=== PATIENT | female | born 1990 | race American Indian/Alaskan Native ===

== ENCOUNTER 2017-12-12 00:44 | Emergency (ER) | payer MEDICAID ==
[2017-12-12] MEDS ORDERED: ZOFRAN ODT ONE (02:55)
[2017-12-12] MEDS ORDERED: ZOFRAN ODT PO ONE (03:05)
[2017-12-12 03:50] LABS: Hemoglobin 12.9 gm/dl (10.1-14.3); Mean Corpuscular HGB Conc 33 % (30-34); Mean Corpuscular Hemoglobin 26 pg (28-32); Mean Corpuscular Volume 77 fl (79-97); Mean Platelet Volume 8.5 fl (6-12); Platelet Count 247 K/mm3 (140-440); Red Blood Count 5.05 M/mm3 (3.65-5.03); Red Cell Distribution Width 15.7 % (13.2-15.2)
[2017-12-12 04:22] LABS: Bacteria,Urine 1+ /HPF (Negative); Bilirubin,Urine NEG (Negative); Blood,Urine SM (Negative); Color,Urine Yellow (Yellow); Mucus,Urine 1+ /HPF; Urobilinogen,Urine < 2.0 mg/dL (<2.0)
[2017-12-12 04:25] LABS: Band Neutrophils # (Manual) 0.2 K/mm3; Basophils % (Manual) 0 % (0.0-1.8); Eosinophils % (Manual) 0 % (0.0-4.3); Hypochromasia 1+; Platelet Estimate Consistent w Auto; Total Cells Counted 100
[2017-12-12] MEDS ORDERED: TYLENOL ONE (04:48)
[2017-12-12] MEDS ORDERED: TYLENOL PO ONE (04:55)
[2017-12-12 07:45] LABS: Blood Urea Nitrogen 10 mg/dL (7-17)
[2017-12-12 07:46] LABS: Alanine Aminotransferase 5 units/L (7-56); BUN/Creatinine Ratio 17; Calcium 9.2 mg/dL (8.4-10.2); Hemolysis Index 7
[2017-12-12] MEDS ORDERED: NACL 0.9% 1000 ML 1,000 ML IV ONE (08:40)
--- NOTE | 2017-12-12 09:24 | Emergency Department Report ---
ED Abdominal Pain HPI - General Chief Complaint: Abdominal Pain Stated Complaint: ABD PAIN Time Seen by Provider: 12/12/17 08:41 Source: patient Mode of arrival: Ambulatory Limitations: No Limitations - History of Present Illness Initial Comments: This is a 27-year-old female nontoxic, well nourished in appearance, no acute signs of distress presents to the ED with c/o of upper abdominal pain with nausea, vomiting and diarrhea x1 day. Patient stated she went to eat wings sunday night and developed these symptoms. Patient denies any abdominal pain. Patient describes vomit as food content with yellow gastric acid. Patient denies any chest pain, shortness of breath, fever, chills, back pain, urinary symptoms, numbness, tingling. Patient denies any recent travels, localized. Patient denies any drug allergies or significant past medical history. MD Complaint: abdominal pain -: days(s) (1) Location: LUQ, RUQ Radiation: none Migration to: no migration Severity: mild Severity scale (0 -10): 8 Quality: cramping, aching Consistency: constant Improves With: nothing Worsens With: nothing Associated Symptoms: nausea, vomiting, diarrhea. denies: fever, chills, constipation, dysuria, hematemesis, hematochezia, melena, hematuria, anorexia, syncope - Related Data Previous Rx's Medication Instructions Recorded Last Taken Type Ondansetron [Zofran Odt] 4 mg PO Q4H #20 tab.rapdis 12/23/13 Unknown Rx Pnv 21/Iron Ps,Heme Ppep/Folic 1 each PO QDAY #30 tablet 12/23/13 Unknown Rx [Prefera Ob Tablet] Ibuprofen [Motrin] 800 mg PO Q8HR PRN #30 tablet 03/18/16 Unknown Rx Promethazine [Phenergan TAB] 25 mg PO Q6HR PRN #20 tab 03/18/16 Unknown Rx traMADol [Ultram 50 MG tab] 50 mg PO Q6HR PRN #20 tablet 03/18/16 Unknown Rx Ibuprofen [Motrin] 600 mg PO Q8H PRN #30 tablet 12/12/17 Unknown Rx Ondansetron [Zofran Odt] 4 mg PO Q8HR PRN #20 tab.rapdis 12/12/17 Unknown Rx Allergies Allergy/AdvReac Type Severity Reaction Status Date / Time latex Allergy breaks out Verified 12/23/13 10:45 ED Review of Systems ROS: Stated complaint: ABD PAIN Other details as noted in HPI Constitutional: denies: chills, fever Eyes: denies: eye pain, eye discharge, vision change ENT: denies: ear pain, throat pain Respiratory: denies: cough, shortness of breath, wheezing Cardiovascular: denies: chest pain, palpitations Endocrine: no symptoms reported Gastrointestinal: abdominal pain, nausea, vomiting, diarrhea. denies: constipation Genitourinary: denies: urgency, dysuria, discharge Musculoskeletal: denies: back pain, joint swelling, arthralgia Skin: denies: rash, lesions Neurological: denies: headache, weakness, paresthesias Psychiatric: denies: anxiety, depression Hematological/Lymphatic: denies: easy bleeding, easy bruising ED Past Medical Hx - Past Medical History Previous Medical History?: Yes Hx Hypertension: No Hx Congestive Heart Failure: No Hx Diabetes: No Hx Deep Vein Thrombosis: No Hx Renal Disease: No Hx Sickle Cell Disease: No Hx Seizures: No Hx Asthma: No Hx COPD: No Hx HIV: No Additional medical history: chronic back pain/nerve pain - Surgical History Past Surgical History?: No - Social History Smoking Status: Never Smoker Substance Use Type: None - Medications Home Medications: Home Medications Medication Instructions Recorded Confirmed Last Taken Type Ondansetron [Zofran Odt] 4 mg PO Q4H #20 tab.rapdis 12/23/13 Unknown Rx Pnv 21/Iron Ps,Heme Ppep/Folic 1 each PO QDAY #30 tablet 12/23/13 Unknown Rx [Prefera Ob Tablet] Ibuprofen [Motrin] 800 mg PO Q8HR PRN #30 tablet 03/18/16 Unknown Rx Promethazine [Phenergan TAB] 25 mg PO Q6HR PRN #20 tab 03/18/16 Unknown Rx traMADol [Ultram 50 MG tab] 50 mg PO Q6HR PRN #20 tablet 03/18/16 Unknown Rx Ibuprofen [Motrin] 600 mg PO Q8H PRN #30 tablet 12/12/17 Unknown Rx Ondansetron [Zofran Odt] 4 mg PO Q8HR PRN #20 tab.rapdis 12/12/17 Unknown Rx ED Physical Exam - General Limitations: No Limitations General appearance: alert, in no apparent distress - Head Head exam: Present: atraumatic, normocephalic - Eye Eye exam: Present: normal appearance Pupils: Present: normal accommodation - ENT ENT exam: Present: normal exam, mucous membranes moist - Neck Neck exam: Present: normal inspection, full ROM. Absent: tenderness, meningismus, lymphadenopathy - Respiratory Respiratory exam: Present: normal lung sounds bilaterally. Absent: respiratory distress, wheezes, rales, rhonchi, stridor, chest wall tenderness, accessory muscle use, decreased breath sounds, prolonged expiratory - Cardiovascular Cardiovascular Exam: Present: regular rate, normal rhythm, normal heart sounds. Absent: bradycardia, tachycardia, irregular rhythm, systolic murmur, diastolic murmur, rubs, gallop - GI/Abdominal GI/Abdominal exam: Present: soft, tenderness (RUQ and LUQ), normal bowel sounds. Absent: distended, guarding, rebound, rigid, diminished bowel sounds - Expanded GI/Abdominal Exam Expanded GI/Abdominal exam: Absent: psoas sign, obturator sign, heel tap sign, Bee's sign, Rovsing's sign, tenderness at Mcburney's Point, ascites - Rectal Rectal exam: Present: deferred - Extremities Exam Extremities exam: Present: normal inspection, full ROM, normal capillary refill - Back Exam Back exam: Present: normal inspection, full ROM. Absent: tenderness, CVA tenderness (R), CVA tenderness (L), paraspinal tenderness, vertebral tenderness - Neurological Exam Neurological exam: Present: alert, oriented X3, normal gait - Psychiatric Psychiatric exam: Present: normal affect, normal mood - Skin Skin exam: Present: warm, dry, intact, normal color. Absent: rash ED Course Vital Signs 12/12/17 12/12/17 02:43 04:58 Temperature 98.4 F Pulse Rate 63 Respiratory 12 18 Rate Blood Pressure 124/75 O2 Sat by Pulse 100 Oximetry - Reevaluation(s) Reevaluation #1: 12/12/17 09:54 Patient is speaking in full sentences with no signs of distress noted. ED Medical Decision Making - Lab Data Result diagrams: 12/12/17 03:01 12/12/17 03:01 - Medical Decision Making This is a 27-year-old female that presents with abdominal pain and nausea vomiting. Patient stable was examined by me. There is slight abdominal tenderness. No rebound tenderness. Labs obtained. CT abdomen/pelvis with contrast obtained and dictated by the radiologist. Patient received 1L of normal saline and zofran which patient stated symptoms has resolved and subsided. A by mouth challenge of apple juice had been obtained and patient tolerated well with no nausea vomiting. Patient discharged with Zofran. Patient was instructed to increase hydration. Patient was referred to Follow- up with a primary care doctor in 3-5 days or if symptoms worsen and continue return to emergency room as soon as possible. At time of discharge, the patient does not seem toxic or ill in appearance. No acute signs of distress noted. Patient agrees to discharge treatment plan of care. No further questions noted by the patient. Critical care attestation.: If time is entered above; I have spent that time in minutes in the direct care of this critically ill patient, excluding procedure time. ED Disposition Clinical Impression: Nausea & vomiting Qualifiers: Vomiting type: unspecified Vomiting Intractability: non-intractable Qualified Code(s): R11.2 - Nausea with vomiting, unspecified Abdominal pain Qualifiers: Abdominal location: upper abdomen, unspecified Qualified Code(s): R10.10 - Upper abdominal pain, unspecified Disposition: DC-01 TO HOME OR SELFCARE Is pt being admited?: No Does the pt Need Aspirin: No Condition: Stable Instructions: Abdominal Pain (ED), Acute Nausea and Vomiting (ED), Ondansetron (By mouth) Additional Instructions: Follow-up with a primary care doctor in 3-5 days or if symptoms worsen and continue return to emergency room as soon as possible. Prescriptions: Ibuprofen [Motrin] 600 mg PO Q8H PRN #30 tablet PRN Reason: Pain Ondansetron [Zofran Odt] 4 mg PO Q8HR PRN #20 tab.rapdis PRN Reason: Nausea Referrals: PRIMARY CARE, [Primary Care Provider] - 3-5 Days MARIANNA LOPEZ MD [Staff Physician] - 3-5 Days [facility] [Outside] - 3-5 Days [facility] [Outside] - 3-5 Days Forms: Work/School Release Form(ED)
--- NOTE | 2017-12-12 10:51 | Cat Scan Report ---
CT scan of the abdomen and pelvis with IV contrast: History: Abdominal pain. Findings: Normal lung bases. No pleural or pericardial effusion. Normal liver spleen pancreas gallbladder. Normal adrenals, kidneys and bladder. Minimal fluid in the cul-de-sac. No free intraperitoneal air. No evidence of adenopathy. Normal aorta with normal origin of superior mesenteric artery and celiac artery. Diameter of the appendix 5 mm. No periappendiceal inflammation. No evidence of diverticulitis. Suspected right ovarian cyst. Gaseous colon with minimal stool in colon. No bowel distention. Impression: Free intraperitoneal fluid in the cul-de-sac may be related to rupture of ovarian cyst. Suspected right ovarian cyst. Sonographic examination may be advised.
[2017-12-12 11:17] VITALS: BP 122/75
== END 2017-12-12 11:17 | disposition home or self-care (01) ==
LOC: ED 00:44
DX: R11.2 Nausea with vomiting, unspecified (principal); R10.10 Upper abdominal pain, unspecified; Z91.040 Latex allergy status; M54.9 Dorsalgia, unspecified; G89.29 Other chronic pain
CPT/HCPCS: 36415; 74177; 80053; 81001; 84703; 85007; 85025; 96360; 99284; J7030; Q9967; Q0162

== ENCOUNTER 2019-02-06 06:53 | Emergency (ER) | payer MEDICAID, OTHER ==
[2019-02-06 07:07] VITALS: BP 131/71
[2019-02-06 07:51] LABS: Bacteria,Urine 1+ /HPF (Negative); Bilirubin,Urine NEG (Negative); Blood,Urine NEG (Negative); Color,Urine Yellow (Yellow); Mucus,Urine FEW /HPF; Protein,Urine <15 mg/dL mg/dL (Negative); Urobilinogen,Urine < 2.0 mg/dL (<2.0)
[2019-02-06 07:53] LABS: HCG Qualitative,Urine Negative (Negative)
--- NOTE | 2019-02-06 08:38 | Emergency Department Report ---
ED Female HPI - General Chief complaint: Abdominal Pain Stated complaint: LOWER BACK & LOWER ABDOMINAL PAIN Time Seen by Provider: 02/06/19 08:06 Source: patient Mode of arrival: Ambulatory Limitations: No Limitations - History of Present Illness Initial comments: This is a 28-year-old female presents to ED complaining of lower pelvic pain that began last night after she had sexual intercourse with her partner. Patient states she does have some pain with urination but denies vaginal discharge, bleeding, lesions. She also denies fever, chills, nausea or vomiting MD Complaint: pelvic pain, possible STD Location: suprapubic - Related Data Previous Rx's Medication Instructions Recorded Last Taken Type Ondansetron [Zofran Odt] 4 mg PO Q4H #20 tab.rapdis 12/23/13 Unknown Rx Pnv 21/Iron Ps,Heme Ppep/Folic 1 each PO QDAY #30 tablet 12/23/13 Unknown Rx [Prefera Ob Tablet] Ibuprofen [Motrin] 800 mg PO Q8HR PRN #30 tablet 03/18/16 Unknown Rx Promethazine [Phenergan TAB] 25 mg PO Q6HR PRN #20 tab 03/18/16 Unknown Rx traMADol [Ultram 50 MG tab] 50 mg PO Q6HR PRN #20 tablet 03/18/16 Unknown Rx Ibuprofen [Motrin] 600 mg PO Q8H PRN #30 tablet 12/12/17 Unknown Rx Ondansetron [Zofran Odt] 4 mg PO Q8HR PRN #20 tab.rapdis 12/12/17 Unknown Rx Fluconazole [Diflucan TAB] 150 mg PO ONCE #1 tablet 02/06/19 Unknown Rx Allergies Allergy/AdvReac Type Severity Reaction Status Date / Time latex Allergy breaks out Verified 02/06/19 07:04 ED Review of Systems ROS: Stated complaint: LOWER BACK & LOWER ABDOMINAL PAIN Other details as noted in HPI Comment: All other systems reviewed and negative ED Past Medical Hx - Past Medical History Previous Medical History?: No Hx Hypertension: No Hx Congestive Heart Failure: No Hx Diabetes: No Hx Deep Vein Thrombosis: No Hx Renal Disease: No Hx Sickle Cell Disease: No Hx Seizures: No Hx Asthma: No Hx COPD: No Hx HIV: No Additional medical history: chronic back pain/nerve pain - Surgical History Additional Surgical History: C/S - Social History Smoking Status: Never Smoker - Medications Home Medications: Home Medications Medication Instructions Recorded Confirmed Last Taken Type Ondansetron [Zofran Odt] 4 mg PO Q4H #20 tab.rapdis 12/23/13 Unknown Rx Pnv 21/Iron Ps,Heme Ppep/Folic 1 each PO QDAY #30 tablet 12/23/13 Unknown Rx [Prefera Ob Tablet] Ibuprofen [Motrin] 800 mg PO Q8HR PRN #30 tablet 03/18/16 Unknown Rx Promethazine [Phenergan TAB] 25 mg PO Q6HR PRN #20 tab 03/18/16 Unknown Rx traMADol [Ultram 50 MG tab] 50 mg PO Q6HR PRN #20 tablet 03/18/16 Unknown Rx Ibuprofen [Motrin] 600 mg PO Q8H PRN #30 tablet 12/12/17 Unknown Rx Ondansetron [Zofran Odt] 4 mg PO Q8HR PRN #20 tab.rapdis 12/12/17 Unknown Rx Fluconazole [Diflucan TAB] 150 mg PO ONCE #1 tablet 02/06/19 Unknown Rx ED Physical Exam - General Limitations: No Limitations General appearance: alert, in no apparent distress - Head Head exam: Present: atraumatic, normocephalic - Eye Eye exam: Present: normal appearance - ENT ENT exam: Present: mucous membranes moist - Neck Neck exam: Present: normal inspection - Respiratory Respiratory exam: Present: normal lung sounds bilaterally. Absent: respiratory distress - Cardiovascular Cardiovascular Exam: Present: regular rate, normal rhythm. Absent: systolic murmur, diastolic murmur, rubs, gallop - GI/Abdominal GI/Abdominal exam: Present: soft, tenderness (suprapubic), normal bowel sounds - External exam: Present: normal external exam Speculum exam: Present: cervical discharge. Absent: vaginal bleeding, foreign body Bi-manual exam: Present: cervical motion tendernes, uterine tenderness. Absent: adnexal tenderness - Extremities Exam Extremities exam: Present: normal inspection - Back Exam Back exam: Present: normal inspection - Neurological Exam Neurological exam: Present: alert, oriented X3 - Psychiatric Psychiatric exam: Present: normal affect, normal mood - Skin Skin exam: Present: warm, dry, intact, normal color. Absent: rash ED Course Vital Signs 02/06/19 07:04 Temperature 99.1 F Pulse Rate 70 Respiratory 18 Rate Blood Pressure 131/71 O2 Sat by Pulse 100 Oximetry ED Medical Decision Making - Medical Decision Making 28-year-old female presents with cervicitis/PID Urinalysis positive for WBC was 6/and 1+ bacteria. Wet prep Pelvic exam positive for cervical motion tenderness. Discussed the patient and this is most likely due to untreated STD. Discussed treatment in the ED today. urinalysis, gonorrhea and Chlamydia cultures obtained. Patient received 250 mg of Rocephin, azithromycin 1 g, Flagyl 2 g. Discussed with patient possible STD due to exposure. Discussed with patient findings and treatment Discussed prophylaxis treatment patient is to abstain from sex 7-10 days as treatment. Discussed patient partner knowledge and treatment. Discussed the follow-up with the health department for further STD testing. Patient's alert and oriented times 3. Vital signs are normal patient is in no acute discharge. Patient will be discharged home with instructions. Critical care attestation.: If time is entered above; I have spent that time in minutes in the direct care of this critically ill patient, excluding procedure time. ED Disposition Clinical Impression: Cervicitis, STD exposure, Haley infection Disposition: DC-01 TO HOME OR SELFCARE Is pt being admited?: No Does the pt Need Aspirin: No Condition: Stable Instructions: Cervicitis (ED), Abdominal Pain (ED), Vulvovaginal Candidiasis (ED) Additional Instructions: Make sure to follow up with the primary care physician as discussed. Take all your medications as you've been prescribed. If you have any worsening symptoms or develop new symptoms please return to ED immediately. Prescriptions: Fluconazole [Diflucan TAB] 150 mg PO ONCE #1 tablet Referrals: ADY DAI MD [Primary Care Provider] - 3-5 Days Forms: STI Treatment and Prevention Time of Disposition: 10:07
[2019-02-06] MEDS ORDERED: FLAGYL PO ONE (09:32)
[2019-02-06] MEDS ORDERED: ROCEPHIN IM ONE (09:32)
[2019-02-06] MEDS ORDERED: ZITHROMAX PO ONE (09:32)
[2019-02-06] MEDS ORDERED: XYLOCAINE 1% MPF 5 mL INFILTRATI ONE (09:32)
== END 2019-02-06 10:22 | disposition home or self-care (01) ==
LOC: ED 06:53
DX: N72 Inflammatory disease of cervix uteri (principal); B37.3 Candidiasis of vulva and vagina; Z20.2 Contact with and (suspected) exposure to infections with a predominantly sexual mode of transmission; Z91.040 Latex allergy status; Z79.899 Other long term (current) drug therapy
CPT/HCPCS: 81001; 81025; 87086; 87210; 87591; 96372; 99284; J0696

== ENCOUNTER 2019-04-26 09:50 | Emergency (ER) | payer OTHER ==
[2019-04-26 11:00] LABS: Basophils % (Auto) 0.2 % (0.0-1.8); Eosinophils % (Auto) 0.7 % (0.0-4.3); Hematocrit 36.4 % (30.3-42.9); Hemoglobin 11.4 gm/dl (10.1-14.3); Lymphocytes # (Auto) 1.5 K/mm3 (1.2-5.4); Lymphocytes % (Auto) 40.4 % (13.4-35.0); Mean Corpuscular HGB Conc 31 % (30-34); Mean Corpuscular Volume 83 fl (79-97); Monocytes # (Auto) 0.3 K/mm3 (0.0-0.8); Monocytes % (Auto) 7.9 % (0.0-7.3); Platelet Count 203 K/mm3 (140-440); Red Blood Count 4.38 M/mm3 (3.65-5.03); Red Cell Distribution Width 14.3 % (13.2-15.2)
--- NOTE | 2019-04-26 11:13 | Emergency Department Report ---
- General Chief complaint: Weakness Stated complaint: GENERAL ILLNESS Time Seen by Provider: 04/26/19 10:59 Source: patient Mode of arrival: Ambulatory Limitations: No Limitations - History of Present Illness Initial comments: 29-year-old female presents to ED with 5 day history of generalized weakness, nausea, headache, nipple soreness. Patient concerned that she may be , states she did not take a test at home. Patient reports urinary frequency, however denies any dysuria, fever, hematuria, vaginal discharge or bleeding. Patient reports history of anemia, however has never required a transfusion. Reports that she is noncompliant with her iron pills. MD Complaint: lack of energy -: days(s) (5) Location: generalized Severity: moderate Severity scale (0 -10): 7 Improves with: none Worsens with: none Associated Symptoms: headaches, nausea/vomiting. denies: chest pain, dysuria, fever/chills, shortness of breath - Related Data Previous Rx's Medication Instructions Recorded Last Taken Type Ondansetron [Zofran Odt] 4 mg PO Q4H #20 tab.rapdis 12/23/13 Unknown Rx Pnv 21/Iron Ps,Heme Ppep/Folic 1 each PO QDAY #30 tablet 12/23/13 Unknown Rx [Prefera Ob Tablet] Ibuprofen [Motrin] 800 mg PO Q8HR PRN #30 tablet 03/18/16 Unknown Rx Promethazine [Phenergan TAB] 25 mg PO Q6HR PRN #20 tab 03/18/16 Unknown Rx traMADol [Ultram 50 MG tab] 50 mg PO Q6HR PRN #20 tablet 03/18/16 Unknown Rx Ibuprofen [Motrin] 600 mg PO Q8H PRN #30 tablet 12/12/17 Unknown Rx Ondansetron [Zofran Odt] 4 mg PO Q8HR PRN #20 tab.rapdis 12/12/17 Unknown Rx Fluconazole [Diflucan TAB] 150 mg PO ONCE #1 tablet 02/06/19 Unknown Rx Allergies Allergy/AdvReac Type Severity Reaction Status Date / Time latex Allergy breaks out Verified 04/26/19 09:51 nitrofurantoin Allergy Hives Verified 04/26/19 09:51 [From Macrobid] ED Review of Systems ROS: Stated complaint: GENERAL ILLNESS Other details as noted in HPI Comment: All other systems reviewed and negative Constitutional: denies: chills, fever ENT: denies: throat pain, congestion Respiratory: denies: cough, shortness of breath Cardiovascular: denies: chest pain Gastrointestinal: nausea. denies: abdominal pain, vomiting Genitourinary: frequency. denies: dysuria, hematuria, discharge, abnormal mens es Musculoskeletal: myalgia Neurological: headache ED Past Medical Hx - Past Medical History Previous Medical History?: Yes Hx Hypertension: No Hx Congestive Heart Failure: No Hx Diabetes: No Hx Deep Vein Thrombosis: No Hx Renal Disease: No Hx Sickle Cell Disease: No Hx Seizures: No Hx Asthma: No Hx COPD: No Hx HIV: No Additional medical history: chronic back pain/nerve pain, anemia - Surgical History Past Surgical History?: Yes Additional Surgical History: - Social History Smoking Status: Never Smoker Substance Use Type: Alcohol - Medications Home Medications: Home Medications Medication Instructions Recorded Confirmed Last Taken Type Ondansetron [Zofran Odt] 4 mg PO Q4H #20 tab.rapdis 12/23/13 Unknown Rx Pnv 21/Iron Ps,Heme Ppep/Folic 1 each PO QDAY #30 tablet 12/23/13 Unknown Rx [Prefera Ob Tablet] Ibuprofen [Motrin] 800 mg PO Q8HR PRN #30 tablet 03/18/16 Unknown Rx Promethazine [Phenergan TAB] 25 mg PO Q6HR PRN #20 tab 03/18/16 Unknown Rx traMADol [Ultram 50 MG tab] 50 mg PO Q6HR PRN #20 tablet 03/18/16 Unknown Rx Ibuprofen [Motrin] 600 mg PO Q8H PRN #30 tablet 12/12/17 Unknown Rx Ondansetron [Zofran Odt] 4 mg PO Q8HR PRN #20 tab.rapdis 12/12/17 Unknown Rx Fluconazole [Diflucan TAB] 150 mg PO ONCE #1 tablet 02/06/19 Unknown Rx ED Physical Exam - General Limitations: No Limitations General appearance: alert, in no apparent distress - Head Head exam: Present: atraumatic, normocephalic - Eye Eye exam: Present: normal appearance, EOMI - ENT ENT exam: Present: mucous membranes moist - Neck Neck exam: Present: normal inspection - Respiratory Respiratory exam: Present: normal lung sounds bilaterally. Absent: respiratory distress - Cardiovascular Cardiovascular Exam: Present: regular rate, normal rhythm - GI/Abdominal GI/Abdominal exam: Present: soft. Absent: distended, tenderness - Extremities Exam Extremities exam: Present: normal inspection - Neurological Exam Neurological exam: Present: alert, oriented X3, CN II-XII intact. Absent: motor sensory deficit - Psychiatric Psychiatric exam: Present: normal affect, normal mood - Skin Skin exam: Present: warm, dry, intact, normal color ED Course Vital Signs 04/26/19 04/26/19 04/26/19 09:51 10:55 12:20 Temperature 98.5 F 98 F Pulse Rate 59 L 75 Respiratory 18 16 16 Rate Blood Pressure 135/81 126/78 [Right] O2 Sat by Pulse 100 100 Oximetry ED Medical Decision Making - Lab Data Result diagrams: 04/26/19 10:38 04/26/19 10:38 - Differential Diagnosis , UTI, anemia Critical care attestation.: If time is entered above; I have spent that time in minutes in the direct care of this critically ill patient, excluding procedure time. ED Disposition Clinical Impression: Generalized weakness Disposition: DC-01 TO HOME OR SELFCARE Is pt being admited?: No Condition: Stable Instructions: Weakness (ED) Referrals: TIM MEYER MD [Primary Care Provider] - 3-5 Days PRIMARY CAREMD [Referring] - 3-5 Days Time of Disposition: 12:08
[2019-04-26 11:25] LABS: Bacteria,Urine 1+ /HPF (Negative); Bilirubin,Urine NEG (Negative); Blood,Urine NEG (Negative); Color,Urine Straw (Yellow); Protein,Urine <15 mg/dL mg/dL (Negative); Urobilinogen,Urine < 2.0 mg/dL (<2.0); WBC,Urine < 1.0 /HPF (0.0-6.0)
[2019-04-26 11:42] LABS: Alanine Aminotransferase 10 units/L (7-56); Albumin 4.1 g/dL (3.9-5); BUN/Creatinine Ratio 19; Blood Urea Nitrogen 13 mg/dL (7-17); Calcium 9.1 mg/dL (8.4-10.2); Hemolysis Index 2
[2019-04-26 12:21] VITALS: BP 126/78
== END 2019-04-26 12:21 | disposition home or self-care (01) ==
LOC: ED 09:50
DX: R53.1 Weakness (principal); M54.9 Dorsalgia, unspecified; G89.29 Other chronic pain; R11.2 Nausea with vomiting, unspecified; Z86.2 Personal history of diseases of the blood and blood-forming organs and certain disorders involving the immune mechanism; Z79.1 Long term (current) use of non-steroidal anti-inflammatories (NSAID); Z79.899 Other long term (current) drug therapy; Z91.040 Latex allergy status; Z88.8 Allergy status to other drugs, medicaments and biological substances
CPT/HCPCS: 36415; 80053; 81001; 84703; 85025; 99283

== ENCOUNTER 2019-04-26 21:44 | Emergency (ER) | payer OTHER ==
[2019-04-27] MEDS ORDERED: KETOROLAC 30 MG/1 ML INJ IM ONE (00:28)
[2019-04-27] MEDS ORDERED: ACETAMINOPHEN 325 MG TAB PO ONE (00:28)
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
[2019-04-27 01:01] VITALS: BP 116/67
== END 2019-04-27 01:10 | disposition home or self-care (01) ==
LOC: ED 21:44
DX: M54.2 Cervicalgia (principal); M79.601 Pain in right arm; Z79.899 Other long term (current) drug therapy; Z91.040 Latex allergy status; Z88.8 Allergy status to other drugs, medicaments and biological substances; V49.49XA Driver injured in collision with other motor vehicles in traffic accident, initial encounter; Y93.89 Activity, other specified; Y92.410 Unspecified street and highway as the place of occurrence of the external cause; Y99.8 Other external cause status
CPT/HCPCS: 96372; 99282; J1885